=== PATIENT | female | born 1975 | race Two or more races ===

== ENCOUNTER 2021-04-26 20:18 | Emergency (ER) | payer BC ==
[~2021-04-26] VITALS: Ht 162.6 cm; Wt 82.0 kg
[2021-04-26 20:26] VITALS: BP 148/92
[2021-04-27] MEDS ORDERED: ACETAMINOPHEN 500MG TABLET PO ONE
== END 2021-04-27 01:22 | disposition home or self-care (01) ==
LOC: ER 20:18
DX: U07.1 COVID-19 (principal); I10 Essential (primary) hypertension
CPT/HCPCS: 99283; C9803; U0003; U0005